=== PATIENT | female | born 1990 | race Caucasian/White ===

== ENCOUNTER 2018-09-06 14:12 | Emergency (ER) | payer OTHER ==
[~2018-09-06] VITALS: Ht 165.1 cm; Wt 90.7 kg
[2018-09-06] MEDS ORDERED: SILVER SULFADIAZINE 1% CREAM 50 GM TP ONE (14:30)
[2018-09-06] MEDS ORDERED: ACETAMINOPHEN 325 MG TABLET PO ONE (14:45)
[2018-09-06] MEDS ORDERED: SILVER SULFADIAZINE 1% CREAM 25 GM TUBE TP ONE (14:45)
[2018-09-06] MEDS ORDERED: ACETAMINOPHEN 325 MG TABLET ONE (14:46)
--- NOTE | 2018-09-06 14:56 | NUR ---
PT WAS D/C'd TO HOME. D/C INSTRUCTIONS GIVEN TO THE PT.
[2018-09-06 14:57] VITALS: BP 131/77
== END 2018-09-06 14:58 | disposition home or self-care (01) ==
LOC: ER 14:12
DX: T23.201A Burn of second degree of right hand, unspecified site, initial encounter (principal); X11.8XXA Contact with other hot tap-water, initial encounter; Y93.89 Activity, other specified; Y92.89 Other specified places as the place of occurrence of the external cause; Y99.8 Other external cause status
CPT/HCPCS: 16020; A4663